=== PATIENT | female | born 1960 | race Caucasian/White ===

== ENCOUNTER 2018-12-19 08:02 | Day surgery (SDC) | payer MEDICARE ==
[~2018-12-19 08:02] MED LIST: PROPOFOL INJ 200 MG/20 ML VIAL IV ONE
[2018-12-19] MEDS ORDERED: ACETAMINOPHEN 325 MG TABLET ONE (09:26)
[2018-12-19 09:45] VITALS: BP 107/60
[2018-12-19] MEDS ORDERED: LIDOCAINE 2% INJ-PF (100 MG/5 ML) SYRINGE ONE (13:13)
--- NOTE | 2018-12-19 14:34 | Operative Report ---
Operative Report DATE OF SURGERY: 12/19/18 Operative Report: The risks, benefits and alternatives of the procedure including the risk of bleeding, perforation requiring surgery have been explained to the patient in detail and informed consent has been obtained. The patient is brought back to the endoscopy suite and placed in the left, lateral decubital position. Timeout was called. Propofol medication is administered. Rectal examination is done which did not reveal any masses, tears or fissures. An Olympus videoscope was introduced into the patient's rectum. The scope was then carefully advanced all the way to the cecum. The cecum was identified by the usual anatomical landmarks of the ileocecal valve as well as the appendiceal office. Photodocumentation is obtained. The scope was then sequentially pulled back via the various segments of the colon including the ascending colon, hepatic flexure, transverse colon, splenic flexure, descending colon and finally into the rectosigmoid portions of the colon. Retroflexion maneuvers performed. The risks benefits and alternatives of the procedure explained to the patient in detail and informed consent is obtained.A GIF Olympus video scope was inserted into the patient's mouth and hypopharynx ,the esophagus is identified intubated and insufflated ,the scope was then advanced through the esophagus stomach and duodenum ,retroflexion maneuver is done ,the esophagus stomach and first and second portions of the duodenum examined. PREOPERATIVE DIAGNOSIS: Change in bowel habits. Epigastric pain POSTOPERATIVE DIAGNOSIS: Mild inflammation noted on the right-hand side of the colon status post biopsy. Internal hemorrhoids. Gastritis status post biopsy. Duodenitis OPERATION: Colonoscopy with biopsy. EGD with biopsy SURGEON: HUGO ESCOBEDO ANESTHESIA: LMAC TISSUE REMOVED OR ALTERED: As noted above. COMPLICATIONS: None. ESTIMATED BLOOD LOSS: None. INTRAOPERATIVE FINDINGS: As noted above. PROCEDURE: Patient tolerated the procedure well. No immediate postprocedure complications are noted. Patient is discharged in good condition. Discharge date 12/19/2018. Discharge diet: Regular. Discharge activity: Regular. 2 to 3-week follow-up to discuss findings. Patient is instructed to call the office or proceed to the emergency room should there be any further problems or questions. Wait on the pathology.
== END 2018-12-19 09:47 | disposition home or self-care (01) ==
LOC: END 08:02
PROVIDERS: ATTEND Internal Medicine Gastroenterology
DX: D12.6 Benign neoplasm of colon, unspecified (principal); K52.9 Noninfective gastroenteritis and colitis, unspecified; K29.50 Unspecified chronic gastritis without bleeding; D64.9 Anemia, unspecified; Z86.010 Personal history of colon polyps; K92.1 Melena; B18.2 Chronic viral hepatitis C; K86.1 Other chronic pancreatitis; J45.909 Unspecified asthma, uncomplicated; F17.210 Nicotine dependence, cigarettes, uncomplicated; I25.2 Old myocardial infarction; Z86.73 Personal history of transient ischemic attack (TIA), and cerebral infarction without residual deficits; G20 Parkinson's disease; Z79.51 Long term (current) use of inhaled steroids; Z79.82 Long term (current) use of aspirin; E78.00 Pure hypercholesterolemia, unspecified; I25.10 Atherosclerotic heart disease of native coronary artery without angina pectoris; E78.2 Mixed hyperlipidemia
CPT/HCPCS: 43239; 45380; 88342 ×2; 88305 ×2; 00813; A9270; J2001; J2704; 813

== ENCOUNTER → 2019-08-14 | Outpatient (CLI) | payer MEDICARE, OTHER ==
[2019-08-14 10:37] LABS: ABSOLUTE BASOPHILS # (AUTO) 0.1 10^3/uL (0.0-0.2); ABSOLUTE EOSINOPHILS # (AUTO) 0.3 10^3/uL (0.0-0.6); ABSOLUTE LYMPHOCYTES (AUTO) 1.7 10^3/uL (0.5-4.7); ABSOLUTE MONOCYTES (AUTO) 0.5 10^3/uL (0.1-1.4); ABSOLUTE NEUT (AUTO) 2.7 10^3/uL (1.7-8.2); EOSINOPHILS % (AUTO) 4.9 % (0-6); HEMATOCRIT 43.5 % (36.0-47.0); MEAN CORPUSCULAR HEMOGLOBIN 31.3 pg (27.0-33.4); MEAN CORPUSCULAR HGB CONC 34.4 g/dL (32.0-36.0); MEAN CORPUSCULAR VOLUME 91 fl (80-97); MONOCYTES % (AUTO) 8.8 % (3-13); PLATELET COUNT 312 10^3/uL (150-450); RED CELL DISTRIBUTION WIDTH 13.9 % (11.5-14.0); SEGMENTED NEUTROPHILS % (AUTO) 52.3 % (42-78); TOTAL CELLS COUNTED % (AUTO) 100 %; WHITE BLOOD COUNT 5.2 10^3/uL (4.0-10.5)
[2019-08-14 11:05] LABS: ALBUMIN 4.3 g/dL (3.5-5.0); ALKALINE PHOSPHATASE 85 U/L (38-126); ANION GAP 7 (5-19); ASPARTATE AMINO TRANSFERASE 19 U/L (14-36); BILIRUBIN,TOTAL 0.3 mg/dL (0.2-1.3); BLOOD UREA NITROGEN 19 mg/dL (7-20); CALCIUM 9.6 mg/dL (8.4-10.2); CARBON DIOXIDE 27 mmol/L (22-30); CHLORIDE 103 mmol/L (98-107); CHOLESTEROL 244.65 mg/dL (0-200); GLUCOSE 111 mg/dL (75-110); POTASSIUM 4.9 mmol/L (3.6-5.0); TOTAL PROTEIN 7.3 g/dL (6.3-8.2); TRIGLYCERIDES 343 mg/dL (<150)
[2019-08-14 11:25] LABS: DIRECT LDL 142 mg/dL (<100); VLDL CHOLESTEROL 68.6 mg/dL (10-31)
[2019-08-14 11:27] LABS: URINE AMPHETAMINES SCREEN NEGATIVE; URINE BARBITURATES SCREEN NEGATIVE; URINE BENZODIAZEPINES SCREEN NEGATIVE; URINE COCAINE SCREEN NEGATIVE; URINE MARIJUANA (THC) SCREEN NEGATIVE; URINE METHADONE SCREEN NEGATIVE; URINE PHENCYCLIDINE SCREEN NEGATIVE
[2019-08-15 13:36] LABS: VITAMIN D 1,25 DIHYDROXY 21.2 pg/mL (19.9-79.3)
== END ==
LOC: OD 09:26
DX: I50.9 Heart failure, unspecified (principal); F31.62 Bipolar disorder, current episode mixed, moderate; F41.1 Generalized anxiety disorder; F43.12 Post-traumatic stress disorder, chronic; F51.05 Insomnia due to other mental disorder; Z72.51 High risk heterosexual behavior; Z79.899 Other long term (current) drug therapy
CPT/HCPCS: 36415; 80053; 80061; 80307; 82652; 83036; 83880; 85025

== ENCOUNTER 2019-11-19 11:51 | Emergency (ER) | payer MEDICARE ==
--- NOTE | 2019-11-19 12:36 | ER Document Report ---
ED Medical Screen (RME) - General Chief Complaint: Hip Pain Stated Complaint: LEFT HIP PAIN Time Seen by Provider: 11/19/19 12:31 Primary Care Provider: KRYSTLE POOLE [Primary Care Provider] - Follow up as needed Information source: Patient Notes: This [id number] female presented to the emergency room today stating that she had fallen on 05 November and has pain to her left hip area radiating medially down her lower extremities she cannot feel her left foot. She does have some nausea neuralgia and a unique allergy profile TRAVEL OUTSIDE OF THE [place] IN LAST 30 DAYS: No - Related Data Allergies/Adverse Reactions: morphine Allergy (Severe, Verified 11/19/19 12:31) RASH levofloxacin [From Levaquin] Allergy (Intermediate, Verified 11/19/19 12:31) REDNESS TO SKIN pentazocine [From Talwin] Allergy (Intermediate, Verified 11/19/19 12:31) "GOT VERY HIGH" hydromorphone [From Dilaudid] Allergy (Unknown, Verified 11/19/19 12:31) methadone Adverse Reaction (Intermediate, Verified 11/19/19 12:31) "MADE ME VERY HIGH" Past Medical History - Past Medical History Cardiac Medical History: Reports: Hx Coronary Artery Disease, Hx Heart Attack Denies: Hx Hypertension Pulmonary Medical History: Reports: Hx Asthma, Hx Bronchitis, Hx COPD Denies: Hx Pneumonia Neurological Medical History: Reports: Hx Cerebrovascular Accident. Denies: Hx Seizures - Immunizations Hx Diphtheria, Pertussis, Tetanus Vaccination: Yes Physical Exam - Vital signs Vitals: Temp Pulse Resp BP Pulse Ox 98.2 F 102 H 20 149/101 H 94 11/19/19 11:59 11/19/19 11:59 11/19/19 11:59 11/19/19 11:59 11/19/19 11:59 Course - Vital Signs Vital signs: Temp Pulse Resp BP Pulse Ox 98.2 F 102 H 20 149/101 H 94 11/19/19 11:59 11/19/19 11:59 11/19/19 11:59 11/19/19 11:59 11/19/19 11:59 Doctor's Discharge - Discharge Referrals: KRYSTLE POOLE [Primary Care Provider] - Follow up as needed
[2019-11-19] MEDS ORDERED: HYDROCODONE/ACETAMINOPHEN 5-325 MG TABLET PO ONE (12:38)
--- NOTE | 2019-11-19 13:07 | RADIOLOGY REPORT (SQ) ---
EXAM DESCRIPTION: HIP LEFT AP/LATERAL IMAGES COMPLETED DATE/TIME: 11/19/2019 12:49 pm REASON FOR STUDY: pain COMPARISON: None. NUMBER OF VIEWS: Two views. TECHNIQUE: AP pelvis and additional frog-leg view of the left hip. LIMITATIONS: None. FINDINGS: MINERALIZATION: Normal. LEFT HIP: No fracture or dislocation. No worrisome bone lesions. RIGHT HIP: No fracture or dislocation. No worrisome bone lesions. PUBIS AND ISCHIUM: No fracture. PELVIS: No fracture. SACRUM: No fracture or dislocation. No worrisome bone lesions. LOWER LUMBAR SPINE: No fracture or dislocation. No worrisome bone lesions. Degenerative disc disease . SOFT TISSUES: No findings. OTHER: No other significant finding. IMPRESSION: NO RADIOGRAPHIC EVIDENCE OF ACUTE INJURY. TECHNICAL DOCUMENTATION: JOB ID: [id number] [id number] 2010 [employer]- All Rights Reserved Reading location - IP/workstation name: [email or web address]
[2019-11-19 13:10] LABS: ABSOLUTE BASOPHILS # (AUTO) 0.1 10^3/uL (0.0-0.2); ABSOLUTE EOSINOPHILS # (AUTO) 0.3 10^3/uL (0.0-0.6); ABSOLUTE LYMPHOCYTES (AUTO) 1.9 10^3/uL (0.5-4.7); ABSOLUTE MONOCYTES (AUTO) 0.6 10^3/uL (0.1-1.4); BASOPHILS % (AUTO) 1.1 % (0-2); EOSINOPHILS % (AUTO) 4.8 % (0-6); HEMATOCRIT 42.5 % (36.0-47.0); HEMOGLOBIN 14.7 g/dL (12.0-15.5); LYMPHOCYTES % (AUTO) 27.4 % (13-45); MEAN CORPUSCULAR HEMOGLOBIN 30.8 pg (27.0-33.4); MEAN CORPUSCULAR HGB CONC 34.5 g/dL (32.0-36.0); MEAN CORPUSCULAR VOLUME 89 fl (80-97); MONOCYTES % (AUTO) 8.9 % (3-13); PLATELET COUNT 359 10^3/uL (150-450); RED BLOOD COUNT 4.76 10^6/uL (3.72-5.28); RED CELL DISTRIBUTION WIDTH 14.5 % (11.5-14.0); SEGMENTED NEUTROPHILS % (AUTO) 57.8 % (42-78); TOTAL CELLS COUNTED % (AUTO) 100 %; WHITE BLOOD COUNT 6.9 10^3/uL (4.0-10.5)
[2019-11-19 13:14] LABS: APPEARANCE,URINE CLEAR; BILIRUBIN,URINE NEGATIVE (NEGATIVE); COLOR,URINE YELLOW; GLUCOSE, URINE NEGATIVE (NEGATIVE); KETONES,URINE NEGATIVE (NEGATIVE); LEUKOCYTE ESTERASE,URINE NEGATIVE (NEGATIVE); NITRITE,URINE NEGATIVE (NEGATIVE); PROTEIN,URINE NEGATIVE (NEGATIVE); URINE SPECIFIC GRAVITY 1.011; UROBILINOGEN,URINE NEGATIVE mg/dL (<2.0)
[2019-11-19 13:31] LABS: ALBUMIN 4.4 g/dL (3.5-5.0); ALKALINE PHOSPHATASE 71 U/L (38-126); ANION GAP 6 (5-19); ASPARTATE AMINO TRANSFERASE 20 U/L (14-36); BILIRUBIN,TOTAL 0.2 mg/dL (0.2-1.3); BLOOD UREA NITROGEN 19 mg/dL (7-20); CALCIUM 9.5 mg/dL (8.4-10.2); CARBON DIOXIDE 24 mmol/L (22-30); CHLORIDE 106 mmol/L (98-107); GLUCOSE 108 mg/dL (75-110); POTASSIUM 5.5 mmol/L (3.6-5.0); TOTAL PROTEIN 7.5 g/dL (6.3-8.2)
[2019-11-19] MEDS ORDERED: OXYCODONE-ACETAMINOPHEN 5-325 MG TABLET PO ONE (13:49)
--- NOTE | 2019-11-19 13:56 | ER Document Report ---
ED General - General Chief Complaint: Hip Pain Stated Complaint: LEFT HIP PAIN Time Seen by Provider: 11/19/19 12:31 Primary Care Provider: KRYSTLE POOLE [Primary Care Provider] - Follow up as needed Notes: Patient is a 59-year-old female with CAD is a current everyday smoker who presents to the emergency department with a chief complaint of left hip pain. She states this began on November 05. She denies any specific inciting injury. States that the pain is deep in the left hip area and radiates down the anterior left leg all the way to the medial left foot in the arch of the foot. States the pain is not specifically palliated or provoked by any action she is aware. She denies any associated numbness or tingling. Denies any lower back pain. 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 She denies any chronic oral steroid medications. No fevers, chills or night sweats. No abdominal pain, urinary symptoms, vaginal bleeding or discharge. TRAVEL OUTSIDE OF THE [place] IN LAST 30 DAYS: No - Related Data Allergies/Adverse Reactions: morphine Allergy (Severe, Verified 11/19/19 12:31) RASH levofloxacin [From Levaquin] Allergy (Intermediate, Verified 11/19/19 12:31) REDNESS TO SKIN pentazocine [From Talwin] Allergy (Intermediate, Verified 11/19/19 12:31) "GOT VERY HIGH" hydromorphone [From Dilaudid] Allergy (Unknown, Verified 11/19/19 12:31) methadone Adverse Reaction (Intermediate, Verified 11/19/19 12:31) "MADE ME VERY HIGH" Past Medical History - General Information source: Patient - Social History Smoking Status: Current Every Day Smoker Frequency of alcohol use: None Drug Abuse: None Family History: Reviewed & Not Pertinent Patient has homicidal ideation: No - Past Medical History Cardiac Medical History: Reports: Hx Coronary Artery Disease, Hx Heart Attack Denies: Hx Hypertension Pulmonary Medical History: Reports: Hx Asthma, Hx Bronchitis, Hx COPD Denies: Hx Pneumonia Neurological Medical History: Reports: Hx Cerebrovascular Accident. Denies: Hx Seizures - Immunizations Hx Diphtheria, Pertussis, Tetanus Vaccination: Yes Review of Systems - Review of Systems EENT: denies: Throat pain Cardiovascular: denies: Chest pain Respiratory: denies: Short of breath Gastrointestinal: denies: Abdominal pain Genitourinary: denies: Burning, Dysuria Female Genitourinary: denies: Vaginal discharge Musculoskeletal: Muscle pain - Muscle pain Skin: denies: Change in color Hematologic/Lymphatic: denies: Easy bleeding Neurological/Psychological: Gait changes Physical Exam - Vital signs Vitals: Temp Pulse Resp BP Pulse Ox 98.2 F 102 H 20 149/101 H 94 11/19/19 11:59 11/19/19 11:59 11/19/19 11:59 11/19/19 11:59 11/19/19 11:59 - General General appearance: Appears well, Alert In distress: None - Respiratory Respiratory status: No respiratory distress Chest status: Nontender Breath sounds: Normal Chest palpation: Normal - Cardiovascular Rhythm: Regular Heart sounds: Normal auscultation - Abdominal Inspection: Normal Distension: No distension Bowel sounds: Normal Tenderness: Nontender Organomegaly: No organomegaly - Extremities Notes: Full passive range of motion of the left hip. Slight tenderness to the posterior left greater trochanter region/lateral buttock. No overlying rash. Lower extremity strength is 5 out of 5 bilaterally. Normal DTRs bilaterally. 2+ DP/PT bilaterally. The extremity is warm with good capillary refill dist ally. Gait is slightly limited by pain. Nontender lower back, negative straight leg raise. No vertebral point tenderness. - Neurological Neuro grossly intact: Yes Cognition: Normal Orientation: AAOx4 - Psychological Associated symptoms: Normal affect, Normal mood - Skin Skin Temperature: Warm Skin Moisture: Dry Skin Color: Normal Course - Re-evaluation Re-evalutation: 11/19/19 13:53 Patient's history and physical consistent with a myofascial pain. No blunt trauma. No numbness or tingling. No evidence of infection, osteomyelitis or avascular necrosis. X-ray negative for acute process per radiologist. Patient's [place] prescription drug monitoring profile was reviewed and showed no narcotic pain medications. She will be given a short course of Percocet for pain. She was encouraged not to take ibuprofen as she is a cardiac patient. Counseled her regarding the importance of outpatient follow-up, namely with orthopedics next week for reevaluation and possible further intervention. Although she currently has a normal vascular status exam she does have a history of CAD and is still a current smoker, in addition to seeing orthopedics for possible myofascial/Ortho related complaints she will also see her PCP for reevaluation of her vascular status and if necessary referral to vascular surgery. Advised that she return here any ER immediately with any new, persistent or worsening symptoms. She verbalized understood and agreed. 11/19/19 13:57 - Vital Signs Vital signs: Temp Pulse Resp BP Pulse Ox 98.2 F 102 H 20 149/101 H 94 11/19/19 12:33 11/19/19 11:59 11/19/19 11:59 11/19/19 11:59 11/19/19 11:59 - Laboratory Result Diagrams: 11/19/19 12:57 11/19/19 12:57 Laboratory results interpreted by me: 11/19/19 11/19/19 12:57 12:57 RDW 14.5 H Sodium 135.9 L Potassium 5.5 H Est GFR (MDRD) Non-Af 56 L Discharge - Discharge Clinical Impression: Hip pain Condition: Stable Disposition: HOME, SELF-CARE Instructions: Ice Packs ([facility]), Oral Narcotic Medication ([facility]) Additional Instructions: Follow-up with your regular doctor in 2 to 3 days for reevaluation. Return here or any ER immediately with any new, persistent or worsening symptoms. Prescriptions: Oxycodone HCl/Acetaminophen [Percocet 5-325 mg Tablet] 1 tab PO Q6 PRN #12 tablet PRN Reason: Referrals: LOCALMD,NO [Primary Care Provider] - Follow up as needed VIN HOOKER JR, DO [ACTIVE PROVISIONAL STAFF] - Follow up as needed
[2019-11-19 14:13] VITALS: BP 142/70
== END 2019-11-19 14:13 | disposition home or self-care (01) ==
LOC: ER 11:51
DX: M25.552 Pain in left hip (principal); M79.605 Pain in left leg; M79.672 Pain in left foot; X50.9XXA Other and unspecified overexertion or strenuous movements or postures, initial encounter; I25.10 Atherosclerotic heart disease of native coronary artery without angina pectoris; Z88.8 Allergy status to other drugs, medicaments and biological substances; F17.200 Nicotine dependence, unspecified, uncomplicated; I25.2 Old myocardial infarction; J44.9 Chronic obstructive pulmonary disease, unspecified
CPT/HCPCS: 99283; 36415; 85025; 86140; 80053; 81001; 73502; A9270 ×2